=== PATIENT | female | born 1990 | race Caucasian/White ===

== ENCOUNTER 2018-08-02 14:46 | Observation (INO) | payer SELFPAY ==
[~2018-08-02] VITALS: Ht 167.6 cm; Wt 89.4 kg
[2018-08-02] MEDS ORDERED: PNV1TABL76 MT (15:32)
[2018-08-02] MEDS ORDERED: LACTATED RINGERS 1,000 ML IV SCH (15:45)
== END 2018-08-02 16:45 | disposition home or self-care (01) ==
LOC: L&D 14:46
PROVIDERS: ADMIT Specialist; ATTEND Specialist
DX: O26.892 Other specified pregnancy related conditions, second trimester (principal); R10.30 Lower abdominal pain, unspecified; Z3A.21 21 weeks gestation of pregnancy
CPT/HCPCS: 99281; G0378; J7120